=== PATIENT | female | born 1980 | race Caucasian/White ===

== ENCOUNTER 2020-12-22 22:02 | Emergency (ER) | payer OTHER ==
[~2020-12-22] VITALS: Ht 165.1 cm; Wt 79.4 kg
[2020-12-22 22:16] VITALS: Ht 165.1 cm; Wt 79.4 kg
[2020-12-22 23:39] VITALS: BP 128/93
== END 2020-12-22 23:39 | disposition home or self-care (01) ==
LOC: ED 22:02
DX: S82.832A Other fracture of upper and lower end of left fibula, initial encounter for closed fracture (principal); I10 Essential (primary) hypertension; Z98.890 Other specified postprocedural states; X50.1XXA Overexertion from prolonged static or awkward postures, initial encounter; Y93.01 Activity, walking, marching and hiking; Y92.89 Other specified places as the place of occurrence of the external cause; Y99.8 Other external cause status